=== PATIENT | female | born 2000 ===

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

== ENCOUNTER → 2024-04-16 | Outpatient (CLI) | payer OTHER, BC ==
[2024-04-16 13:05] LABS: Source, Urine Clean Catch
[2024-04-16 14:50] LABS: Bacteria Many /hpf; Red Blood Cells, Urine 0-2 /hpf (0-2); Squamous Epithelial Cells Few /hpf (Few)
== END | disposition home or self-care (01) ==
LOC: LAB 12:52 → LAB SHORT 12:52
PROVIDERS: Advanced Practice Midwife
DX: Z34.81 Encounter for supervision of other normal pregnancy, first trimester (principal)
CPT/HCPCS: 81015; 87086

== ENCOUNTER → 2024-05-26 | Outpatient (CLI) | payer OTHER ==
[2024-05-26 15:42] LABS: Candida Group, PCR NOT DETECTED (NOT DETECT); Candida glabrata-krusei, PCR NOT DETECTED (NOT DETECT)
[2024-05-26 15:46] LABS: Bacterial Vaginosis PCR Positive (NEGATIVE)
[2024-05-28 18:15] LABS: APTIMA MEDIA TYPE Urine; C. TRACHOMATIS BY TMA Negative (Negative); N. GONORRHOEAE BY TMA Negative (Negative); SPECIMEN SOURCE Urine
== END ==
LOC: LAB SHORT 12:04 → LAB 12:04
PROVIDERS: Advanced Practice Midwife
DX: O23.599 Infection of other part of genital tract in pregnancy, unspecified trimester (principal); Z11.3 Encounter for screening for infections with a predominantly sexual mode of transmission
CPT/HCPCS: 87481; 87491; 87591; 87661; 87801

== ENCOUNTER → 2024-07-02 | Outpatient (CLI) | payer OTHER ==
[2024-07-03 12:41] LABS: Bacterial Vaginosis PCR Negative (NEGATIVE); Candida Group, PCR NOT DETECTED (NOT DETECT); Candida glabrata-krusei, PCR NOT DETECTED (NOT DETECT)
== END ==
LOC: LAB SHORT 17:14 → LAB 17:14
PROVIDERS: Advanced Practice Midwife
DX: O23.599 Infection of other part of genital tract in pregnancy, unspecified trimester (principal); Z3A.00 Weeks of gestation of pregnancy not specified
CPT/HCPCS: 87481; 87661; 87801

== ENCOUNTER → 2024-09-24 | Outpatient (CLI) | payer OTHER | LOC: LAB 15:52 → LAB SHORT 15:52 | DX: J02.9 Acute pharyngitis, unspecified (principal) | CPT/HCPCS: 87081 ==

== ENCOUNTER → 2024-11-19 | Outpatient (CLI) | payer OTHER | END | disposition home or self-care (01) | LOC: LAB 17:22 → LAB SHORT 17:22 | DX: O09.90 Supervision of high risk pregnancy, unspecified, unspecified trimester (principal); Z3A.00 Weeks of gestation of pregnancy not specified | CPT/HCPCS: 87081; 87150 ==

== ENCOUNTER 2024-12-10 06:32 | Inpatient (IN) | payer OTHER ==
[~2024-12-10] VITALS: Ht 170.2 cm; Wt 95.0 kg
[2024-12-10] VITALS (11 sets, daily range): BP systolic 118–152; BP diastolic 72–85
[2024-12-10] MEDS ORDERED: OXYTOCIN/RINGER'S LACTATE 500 ML IV PRN (07:45)
[2024-12-10] MEDS ORDERED: Tranexamic Acid 100 ML IV SCH (07:45)
[2024-12-10] MEDS ORDERED: Acetaminophen 500 MG Tab PO PRN (07:45)
[2024-12-10] MEDS ORDERED: Ondansetron HCl 2 MG / ML 2ML Vial IV PRN ×2 (07:45→08:50)
[2024-12-10] MEDS ORDERED: Carboprost Tromethamine 250 MCG/ML 1ML Amp IM PRN (07:45)
[2024-12-10] MEDS ORDERED: Oxytocin 10 Unit / ML Vial IM PRN (07:45)
[2024-12-10] MEDS ORDERED: Misoprostol 200 MCG Tab BC PRN ×2 (07:45→21:40)
[2024-12-10] MEDS ORDERED: Methylergonovine Maleate 0.2MG / ML 1ML Amp IM PRN ×2 (07:45→21:45)
[2024-12-10] MEDS ORDERED: Lactated Ringer's 1,000 ML IV PRN ×2 (07:45→08:05)
[2024-12-10] MEDS ORDERED: Misoprostol 200 MCG Tab PR PRN (07:45)
[2024-12-10] MEDS ORDERED: Calcium Carbonate 500 MG Tab Chew PO PRN ×2 (07:55→08:50)
[2024-12-10] MEDS ORDERED: Lactated Ringer's 1,000 ML IV SCH ×2 (08:00→21:45)
[2024-12-10] MEDS ORDERED: OXYTOCIN/RINGER'S LACTATE 500 ML IV SCH ×2 (08:00→21:40)
[2024-12-10 08:17] LABS: BASOPHILS ABSOLUTE AUTO 0.02 K/mm3 (0.00-0.23); BASOPHILS PERCENT AUTO 0 % (0-2); EOSINOPHILS PERCENT AUTO 1 % (0-6); Hematocrit 38.2 % (33.0-51.0); Hemoglobin 12.9 g/dL (11.5-16.0); IMMATURE GRAN ABSOLUTE AUTO 0.05 K/mm3 (0.00-0.10); IMMATURE GRAN PERCENT AUTO 0 % (0-1); LYMPHOCYTES ABSOLUTE AUTO 2.11 K/mm3 (0.84-5.20); LYMPHOCYTES PERCENT AUTO 19 % (21-46); MONOCYTES ABSOLUTE AUTO 0.79 K/mm3 (0.16-1.47); MONOCYTES PERCENT AUTO 7 % (4-13); Mean Corpuscular HGB 29.3 pg (26.0-34.0); Mean Corpuscular HGB Conc 33.8 g/dL (31.5-36.5); Mean Corpuscular Volume 87 fL (80-100); Mean Platelet Volume 10.1 fL (9.1-12.4); NEUTROPHILS ABSOLUTE AUTO 8.24 K/mm3 (1.96-9.15); NEUTROPHILS PERCENT AUTO 73 % (41-73); Platelet Count 211 K/mm3 (150-400); RDW Coefficient Variation 14.1 % (11.7-14.2); RDW Standard Deviation 44.5 fL (35.1-46.3); White Blood Cell Count 11.31 K/mm3 (4.00-11.30)
[2024-12-10] MEDS ORDERED: OXYTOCIN/RINGER'S LACTATE 500 ML IV ONE (08:26)
[2024-12-10] MEDS ORDERED: FentaNYL Citrate 50 MCG/ML 2 ML Injection IV PRN (08:50)
[2024-12-10] MEDS ORDERED: Acetaminophen 325 MG TABLET PO PRN ×2 (08:50→21:45)
[2024-12-10] MEDS ORDERED: Lanolin Cream TOP PRN (21:40)
[2024-12-10] MEDS ORDERED: Benzocaine Topical Anesthetic Spray 60GM TOP PRN (21:40)
[2024-12-10] MEDS ORDERED: Ibuprofen 400 MG Tab PO PRN (21:45)
[2024-12-10] MEDS ORDERED: Rho(D) Immune Globulin 300 MCG / SYR IM ONE (21:45)
[2024-12-10] MEDS ORDERED: Docusate Sodium 100 MG Cap PO PRN (21:45)
[2024-12-10] MEDS ORDERED: Witch Hazel/Glycerin PADS TOP PRN (21:45)
[2024-12-10] MEDS ORDERED: Ketorolac Tromethamine 30mg Vial IV PRN (22:30)
[2024-12-11] MEDS ORDERED: Ketorolac Tromethamine 30mg Vial IV SCH
[2024-12-11 02:55] VITALS: BP 118/66
[2024-12-11] MEDS ORDERED: Rho(D) Immune Globulin 300 MCG / SYR IV ONE (05:20)
[2024-12-11 07:53] VITALS: BP 127/79
[2024-12-11] MEDS ORDERED: Prenatal Vit/FE Fumarate/FA 1 Tab PO SCH (09:00)
[2024-12-11 11:55] VITALS: BP 138/83
[2024-12-11 16:08] VITALS: BP 129/82
[2024-12-11 19:27] VITALS: BP 133/82
[2024-12-11] MEDS ORDERED: Ketorolac Tromethamine 30mg Vial IV PRN (22:00)
[2024-12-11 22:28] VITALS: BP 119/75
== END 2024-12-11 22:40 | disposition home or self-care (01) | DRG 807 ==
LOC: OBS 06:32 → BC 06:35 → OBS 06:56 → BC 06:57
PROVIDERS: ADMIT Advanced Practice Midwife
PROC: 10E0XZZ Delivery of Products of Conception, External Approach (ICD-10-PCS; principal; 2024-12-10)
PROC: 10907ZC Drainage of Amniotic Fluid, Therapeutic from Products of Conception, Via Natural or Artificial Opening (ICD-10-PCS; 2024-12-10)
PROC: 4A1HXCZ Monitoring of Products of Conception, Cardiac Rate, External Approach (ICD-10-PCS; 2024-12-10)
PROC: 3E0334Z Introduction of Serum, Toxoid and Vaccine into Peripheral Vein, Percutaneous Approach (ICD-10-PCS; 2024-12-11)
DX: O48.0 Post-term pregnancy (principal); Z37.0 Single live birth; Z3A.40 40 weeks gestation of pregnancy; O26.893 Other specified pregnancy related conditions, third trimester; Z67.11 Type A blood, Rh negative; O99.814 Abnormal glucose complicating childbirth; Z23 Encounter for immunization
CPT/HCPCS: 36415; 82947; 85025; 85460; 86850; 86870; 86900; 86901; A9270; J1885; J2405; J2590; J2791; J3010; J7120